=== PATIENT | female | born 1960 | race African-American/Black ===

== ENCOUNTER 2017-04-30 14:34 | Inpatient (IN) | payer OTHER ==
[~2017-04-30] VITALS: Ht 162.6 cm; Wt 73.9 kg
[~2017-04-30 14:34] MED LIST: AMLO10TA80 PO; ASPI-1159 PO; ATOR20TA PO; BENA20TA3 PO; METO-385 PO; METOPROLOL
[2017-04-30] MEDS ORDERED: ASPIRIN 325MG EC TABLET PO ONE (15:00)
[2017-04-30 15:44] LABS: BASOPHILS % 0.5 % (0.0-2.0); EOSINOPHILS % 2.3 % (0.0-5.0); HEMATOCRIT. 33.9 % (36.0-48.0); HEMOGLOBIN. 11.4 g/dL (12.0-16.0); LYMPHOCYTES % 23.5 % (20.0-50.0); MEAN CORPUSCULAR VOLUME 89.1 fL (81.0-99.0); MEAN PLATELET VOLUME 10.1 fl (7.4-10.4); MONOCYTES % 6.8 % (2.0-8.0); NEUTROPHILS % 66.9 % (40.0-76.0); PLATELET 190 x1000/uL (130-400); RED BLOOD CELL COUNT 3.81 mill/uL (4.2-5.4); RED CELL DISTRIBUTION WIDTH 14.3 % (11.6-14.6)
[2017-04-30 15:45] LABS: CLARITY URINE CLEAR (CLEAR); COLOR URINE YELLOW (YELLOW); GLUCOSE URINE NEGATIVE (NEGATIVE); KETONES URINE NEGATIVE (NEGATIVE); LEUKOCYTE ESTERASE URINE 1+ (NEGATIVE); NITRITE URINE NEGATIVE (NEGATIVE); OCCULT BLOOD URINE 1+ (NEGATIVE); PH URINE 5.5 (4.5-8.0); PROTEIN URINE NEGATIVE (NEGATIVE); SPECIFIC GRAVITY URINE 1.008 (1.005-1.030); UROBILINOGEN URINE 0.2 E.U./dL (0.2-1.0)
[2017-04-30 15:49] LABS: PROTHROMBIN TIME 10.7 sec (9.4-11.6)
[2017-04-30 15:59] LABS: CARBON DIOXIDE 23 mEq/L (21-32); CHLORIDE 106 mEq/L (98-107); TROPONIN I < 0.02 ng/mL (0.00-0.04)
[2017-04-30 16:12] LABS: *AMPHETAMINES SCREEN URINE NEGATIVE (NEGATIVE); *BARBITURATES SCREEN URINE NEGATIVE (NEGATIVE); *BENZODIAZEPINES SCREEN URINE NEGATIVE (NEGATIVE); *COCAINE SCREEN URINE NEGATIVE (NEGATIVE); CANNABINOID URINE SCREEN NEGATIVE (NEGATIVE); METHADONE URINE SCREEN NEGATIVE (NEGATIVE); OPIATES URINE SCREEN NEGATIVE (NEGATIVE); PHENCYCLIDINE URINE SCREEN NEGATIVE (NEGATIVE)
[2017-04-30] MEDS ORDERED: AMLODIPINE 5MG TABLET PO ONE (17:30)
[2017-04-30] MEDS ORDERED: SODIUM CHLORIDE 0.9% 1,000 ML IV ONE (17:30)
[2017-04-30] MEDS ORDERED: SULFAMETHOXAZOLE/TRIMETHOPRIM 800/160MG TABLET PO ONE (17:30)
[2017-04-30] MEDS ORDERED: METOPROLOL TARTRATE 50MG TABLET PO ONE ×2 (18:45)
[2017-04-30] MEDS ORDERED: CLONIDINE 0.1MG TABLET PO ONE (20:30)
[2017-04-30 22:45] VITALS: BP 176/103
[2017-04-30] MEDS ORDERED: HYDROCODONE/ACETAMINOPHEN 10/325MG TABLET PO PRN (22:45)
[2017-04-30] MEDS ORDERED: CLONIDINE 0.1MG TABLET PO PRN (22:45)
[2017-05-01] MEDS ORDERED: HYDROCODONE/ACETAMINOPHEN 10/325MG TABLET PO PRN (02:00)
[2017-05-01] MEDS ORDERED: CLONIDINE 0.1MG TABLET PO PRN (02:00)
[2017-05-01 04:00] VITALS: BP 133/84
[2017-05-01] MEDS ORDERED: ENOXAPARIN 30MG/0.3ML SYR SUBCUT SCH (09:00)
[2017-05-01] MEDS ORDERED: ENOXAPARIN 40MG/0.4ML SYR SUBCUT SCH ×2 (09:00)
[2017-05-01] MEDS ORDERED: ATOR20TA PO (14:33)
[2017-05-01] MEDS ORDERED: AMLO10TA80 PO (14:33)
[2017-05-01] MEDS ORDERED: METO-385 PO (14:33)
[2017-05-01] MEDS ORDERED: ASPI-1159 PO (14:33)
[2017-05-01] MEDS ORDERED: BENA20TA3 PO (14:33)
[2017-05-01] MEDS ORDERED: CEPH-569 PO (14:33)
[2017-05-01 16:58] VITALS: BP 132/74
== END 2017-05-01 19:20 | disposition home or self-care (01) | DRG 241 ==
LOC: ER 15:24 → 6EST 17:34 → EDBEDREQ 17:45 → ENRESERV 19:22 → CANRESERV 19:22 → ENRESERV 19:29 → 6WST 23:41
PROVIDERS: ADMIT Internal Medicine; ATTEND Internal Medicine
DX: K29.00 Acute gastritis without bleeding (principal); I10 Essential (primary) hypertension; N39.0 Urinary tract infection, site not specified; E66.9 Obesity, unspecified; J45.909 Unspecified asthma, uncomplicated; F41.9 Anxiety disorder, unspecified; F10.20 Alcohol dependence, uncomplicated; E11.9 Type 2 diabetes mellitus without complications; Z91.14 Patient's other noncompliance with medication regimen; Z79.899 Other long term (current) drug therapy; Z79.82 Long term (current) use of aspirin
CPT/HCPCS: 36415; 71010; 74176; 80053; 80305; 81001; 81025; 83036; 83880; 84484; 85025; 85610; 85651; 93005; 99285; J1650; J7030